=== PATIENT | female | born 1980 | race African-American/Black ===

== ENCOUNTER 2016-07-13 12:29 | Emergency (ER) | payer OTHER ==
[2016-07-13 12:36] VITALS: BP 117/66; PULSE 100; TEMP 98.7; BMI 28.3
[2016-07-13] MEDS ORDERED: KETOROLAC TROMETHAMINE 30 MG/1 ML VIAL IM ONE (13:48)
[2016-07-13] MEDS ORDERED: KETOROLAC TROMETHAMINE 30 MG/1 ML VIAL ONE (13:51)
--- NOTE | 2016-07-13 13:55 | PDOC ---
History of Present Illness - General Chief Complaint: Sore Throat Stated Complaint: SORE THROAT Time Seen by Provider: 07/13/16 13:39 History Source: Patient Exam Limitations: No Limitations - History of Present Illness Initial Comments: 07/13/16 13:51 35 year old ( delivered 06/01/2015; ) no significant medical or surgical history complaining of throat pain x 3-4 days. States painful with swallowing, associated with chills and headache. Denies cough or sniffling. Modifying Factors: improves with: medication Asa Contraindications(Core Measure): No: Allergy Beta Jose Contraindications(Core Measure): Yes: Not Prescribed Beta Jose Given by EMS(Core Measure): No Beta Jose Taken at Home(Core Measure): No Beta Jose Not Indicated at this Time(Core Measure): No Past History - Travel Traveled outside of the country in the last 30 days: No Close contact w/someone who was outside of country & ill: No - Past Medical History Allergies/Adverse Reactions: Allergies Allergy/AdvReac Type Severity Reaction Status Date / Time No Known Allergies Allergy Verified 07/13/16 12:36 Home Medications: Ambulatory Orders Ibuprofen 600 mg PO TID #21 tablet 07/13/16 Asthma: No Cancer: No Cardiac Disorders: No Diabetes: No HTN: No Seizures: No Thyroid Disease: No - Immunization History Immunization Up to Date: Yes - Psycho/Social/Smoking Cessation Hx Anxiety: No Suicidal Ideation: No Smoking Status: No Smoking History: Never smoked Have you smoked in the past 12 months: No Number of Cigarettes Smoked Daily: 0 Information on smoking cessation initiated: No Hx Alcohol Use: No Drug/Substance Use Hx: No Substance Use Type: None Hx Substance Use Treatment: No Review of Systems - Review of Systems Able to Perform ROS?: Yes Is the patient limited Occitan proficient: No Constitutional: No: Chills, Fever, Malaise, Weakness HEENTM: Yes: Throat Pain. No: Double Vision, Cataracts, Nose Congestion, Tinnitus, Nose Bleeding Respiratory: No: Cough, Orthopnea, Shortness of Breath, Stridor, Productive cough Cardiac (ROS): No: Chest Pain, Irregular Heart Rate, Lightheadedness, Palpitations, Syncope ABD/GI: No: Blood Streaked Bowels, Constipated, Diarrhea, Rectal Bleeding, Vomiting, Indigestion, Abdominal cramping : No: Burning, Hematuria, Incontinence, Pain, Urgency Musculoskeletal: No: Back Pain Neurological: No: Headache, Numbness, Paresthesia *Physical Exam - Vital Signs Last Vital Signs Temp Pulse Resp BP Pulse Ox 98.7 F 100 H 18 117/66 100 07/13/16 12:33 07/13/16 12:33 07/13/16 12:33 07/13/16 12:33 07/13/16 12:33 - Physical Exam General Appearance: Yes: Nourished, Appropriately Dressed. No: Apparent Distress HEENT: positive: EOMI, JENNIFER, TMs Normal Neck: positive: Lymphadenopathy (R). negative: Lymphadenopathy (L) Respiratory/Chest: positive: Lungs Clear, Normal Breath Sounds. negative: Respiratory Distress, Accessory Muscle Use, Labored Respiration Cardiovascular: positive: Regular Rhythm, Regular Rate, S1, S2 Extremity: positive: Normal Capillary Refill, Normal Range of Motion Integumentary: positive: Normal Color Medical Decision Making - Medical Decision Making 07/13/16 14:49 35 year old female presents with sorethroat pharyngitis -rapid strep and throat culture -toradol 30mg im 07/13/16 14:55 strep A positive bicillin im given *DC/Admit/Observation/Transfer Diagnosis at time of Disposition: Strep pharyngitis - Discharge Dispostion Disposition: HOME Condition at time of disposition: Good Admit: No - Prescriptions Prescriptions: Ibuprofen 600 mg PO TID #21 tablet - Referrals Referrals: Sonia Booker [Primary Care Provider] - - Patient Instructions Additional Instructions: Drink plenty fluids, may gargle with warm salt water. Do not share utensils, or kiss anyone. Follow up with primary physician - Post Discharge Activity Work/School Note: Back to Work
[2016-07-13] MEDS ORDERED: PENICILLIN G BENZATHINE 1,200,000 UNIT/2 ML PFS IM ONE (14:46)
[2016-07-13] MEDS ORDERED: PENICILLIN G BENZATHINE 2,400,000 UNIT/4 ML PFS ONE (14:50)
== END 2016-07-13 15:04 | disposition home or self-care (01) ==
LOC: JERFT 12:29
PROC: 3E0233Z Introduction of Anti-inflammatory into Muscle, Percutaneous Approach (ICD-10-PCS; principal; 2016-07-13)
PROC: 3E02329 Introduction of Other Anti-infective into Muscle, Percutaneous Approach (ICD-10-PCS; 2016-07-13)
DX: J02.0 Streptococcal pharyngitis (principal); B95.0 Streptococcus, group A, as the cause of diseases classified elsewhere
CPT/HCPCS: 87070; 87077; 87430; 96372; 99281-25

== ENCOUNTER 2017-07-20 09:20 | Emergency (ER) | payer OTHER ==
[2017-07-20 09:34] VITALS: BP 108/71; PULSE 72; TEMP 98.4; BMI 30.4
--- NOTE | 2017-07-20 11:15 | PDOC ---
History of Present Illness - General Chief Complaint: Cold Symptoms Stated Complaint: COUGH, HEADACHES Time Seen by Provider: 07/20/17 10:38 History Source: Patient Exam Limitations: No Limitations - History of Present Illness Initial Comments: 07/20/17 11:13 c/o cough post nasal drip for 3 days fever . no abd pain no chest pain, daughter with same symptoms. no PMHX. Timing/Duration: reports: just prior to arrival Severity: reports: mild Possible Cause: Yes: occasional episodes Past History - Past Medical History Allergies/Adverse Reactions: Allergies Allergy/AdvReac Type Severity Reaction Status Date / Time No Known Allergies Allergy Verified 07/20/17 09:31 Home Medications: Ambulatory Orders Ibuprofen 600 mg PO TID #21 tablet 07/13/16 Asthma: No Cancer: No Cardiac Disorders: No COPD: No Diabetes: No HTN: No Seizures: No Thyroid Disease: No - Immunization History Immunization Up to Date: Yes - Suicide/Smoking/Psychosocial Hx Smoking Status: No Smoking History: Never smoked Have you smoked in the past 12 months: No Number of Cigarettes Smoked Daily: 0 Information on smoking cessation initiated: No Hx Alcohol Use: No Drug/Substance Use Hx: No Substance Use Type: None Hx Substance Use Treatment: No Respiratory Specific PMHX - Complaint Specific PMHX Angina: No Bronchitis: No Pneumonia: No Pulmonary Embolus: No TB (Tuberculosis): No Review of Systems - Review of Systems Able to Perform ROS?: Yes Is the patient limited Tongan proficient: No Constitutional: No: Symptoms Reported HEENTM: Yes: See HPI Respiratory: Yes: Cough Cardiac (ROS): No: Symptoms Reported ABD/GI: No: Symptoms Reported *Physical Exam - Vital Signs Last Vital Signs Temp Pulse Resp BP Pulse Ox 98.4 F 72 18 108/71 100 07/20/17 09:32 07/20/17 09:32 07/20/17 09:32 07/20/17 09:32 07/20/17 09:32 - Physical Exam General Appearance: Yes: Nourished, Appropriately Dressed HEENT: positive: EOMI, JENNIFER, TMs Normal, Other (post nasal drip ). negative: Pharyngeal Erythema, Tonsillar Exudate, Tonsillar Erythema, Nasal Congestion Neck: positive: Supple. negative: Lymphadenopathy (R), Lymphadenopathy (L) Respiratory/Chest: positive: Lungs Clear, Normal Breath Sounds Cardiovascular: positive: Regular Rhythm, Regular Rate Gastrointestinal/Abdominal: positive: Normal Bowel Sounds, Soft Musculoskeletal: positive: Normal Inspection Extremity: positive: Normal Capillary Refill, Normal Inspection, Normal Range of Motion Integumentary: positive: Normal Color, Dry, Warm Neurologic: positive: Fully Oriented, Alert, Normal Mood/Affect, Normal Response , Motor Strength /5 Medical Decision Making - Medical Decision Making 07/20/17 11:47 cc: post nasal drip cough fever started 2 days daughter with same symptoms non toxic stable vitals no acute distress will dc home with supportive cares strict ENT follow up *DC/Admit/Observation/Transfer Diagnosis at time of Disposition: PND (post-nasal drip), Viral upper respiratory tract infection with cough - Discharge Dispostion Disposition: HOME Condition at time of disposition: Good - Referrals Referrals: Sonia Booker [Primary Care Provider] - - Patient Instructions Printed Discharge Instructions: DI for Viral Upper Respiratory Infection -- Adult Additional Instructions: increase vitamin C and zinc to boost your immune system drink pleanty of fluids to stay hydrated use zyrtec D for post nasal drip follow up with the ENT if symptoms worsen or persist - Post Discharge Activity
== END 2017-07-20 11:21 | disposition home or self-care (01) ==
LOC: JERFT 09:20
DX: J06.9 Acute upper respiratory infection, unspecified (principal); B97.89 Other viral agents as the cause of diseases classified elsewhere
CPT/HCPCS: 99281-25